=== PATIENT | male | born 1975 | race Hispanic/Latino ===

== ENCOUNTER 2018-04-27 17:28 | Emergency (ER) | payer OTHER ==
[2018-04-27 17:41] VITALS: TEMP 97.8
--- NOTE | 2018-04-27 18:16 | ED PDOC ---
HPI: Chest Pain Time Seen by Provider: 04/27/18 18:03 Chief Complaint (Nursing): Chest Pain History Per: Patient Onset/Duration Of Symptoms: Hrs (1) Current Symptoms Are (Timing): Still Present Severity: Moderate Quality: Other (Palpitations) Associated Symptoms: Syncope Exacerbating Factors: None Alleviating Factors: None Additional Complaint(s): Chest discomfort associated with palpitations and lightheadednesss while driving 1 hour prior to arrival. Denies SOB. Pt states he feels extremely anxious and feels like he is going to . Took 1 baby aspirin prior to arrival. Past Medical History Vital Signs: Last Vital Signs Temp 97.8 F 04/27/18 17:39 Pulse 76 04/27/18 17:56 Resp 12 04/27/18 17:55 BP 147/97 H 04/27/18 17:56 Pulse Ox 100 04/27/18 17:55 - Medical History PMH: No Chronic Diseases - Family History Family History: States: Unknown Family Hx - Social History Current smoker - smoking cessation education provided: No Drugs: Denies - Immunization History Hx Tetanus Toxoid Vaccination: No Hx Influenza Vaccination: No Hx Pneumococcal Vaccination: No - Allergies Allergies/Adverse Reactions: Allergies Allergy/AdvReac Type Severity Reaction Status Date / Time No Known Allergies Allergy Verified 04/27/18 17:39 Review of Systems ROS Statement: Except As Marked, All Systems Reviewed And Found Negative Cardiovascular: Positive for: Chest Pain, Palpitations Neurological: Positive for: Dizziness Physical Exam - Reviewed Nursing Documentation Reviewed: Yes Vital Signs Reviewed: Yes - Physical Exam Appears: Positive for: Non-toxic, No Acute Distress Head Exam: Positive for: ATRAUMATIC, NORMAL INSPECTION, NORMOCEPHALIC Skin: Positive for: Normal Color, Warm, DRY Eye Exam: Positive for: EOMI, Normal appearance, PERRL ENT: Positive for: Normal ENT Inspection Neck: Positive for: Normal, Painless ROM Cardiovascular/Chest: Positive for: Regular Rate, Rhythm Respiratory: Positive for: CNT, Normal Breath Sounds Gastrointestinal/Abdominal: Positive for: Normal Exam, Soft Back: Positive for: Normal Inspection Extremity: Positive for: Normal ROM Neurological/Psych: Positive for: Awake, Alert, Normal Tone - Laboratory Results Result Diagrams: 04/27/18 18:29 04/27/18 18:29 - ECG O2 Sat by Pulse Oximetry: 100 Disposition - Clinical Impression Clinical Impression: Chest pain - Patient ED Disposition Is Patient to be Admitted: Transfer of Care - Disposition Disposition: Transfer of Care Disposition Time: 19:20 Condition: FAIR Forms: [employer] Connect (Yi) Patient Signed Over To: Pavel Todd (pending labs)
[2018-04-27 18:39] LABS: BASO % 0.7 % (0.0-2.0); EOS # 0.2 K/uL (0.0-0.7); EOS % 3.4 % (0.0-4.0); HEMOGLOBIN 15.3 g/dL (12.0-18.0); LYMPH # 2.5 K/uL (1.0-4.3); LYMPH % 36.5 % (20.0-40.0); MEAN CORPUSCULAR HEMOGLOBIN 30.5 pg (27.0-31.0); MEAN CORPUSCULAR HGB CONC 33.8 g/dL (33.0-37.0); MEAN PLATELET VOLUME 9.1 fl (7.2-11.7); MONO # 0.7 K/uL (0.0-0.8); NEUT # 3.4 K/uL (1.8-7.0); NEUT % 49.4 % (50.0-75.0); NRBC % 0.1 % (0.0-0.0); RBC 5.03 Mil/uL (4.40-5.90); RED CELL DISTRIBUTION WIDTH 12.6 % (11.5-14.5); WHITE BLOOD COUNT 6.8 K/uL (4.8-10.8)
[2018-04-27 18:53] LABS: ALB/GLOB RATIO 1.6 (1.0-2.1); ALBUMIN 4.9 g/dL (3.5-5.0); ALT/SGPT 47 U/L (21-72); AST/SGOT 38 U/L (17-59); BLOOD UREA NITROGEN 18 mg/dl (9-20); CALCIUM 10.1 mg/dL (8.4-10.2); GFR NON-AFRICAN AMERICAN > 60
--- NOTE | 2018-04-27 19:21 | ED PDOC ---
- Laboratory Results Result Diagrams: 04/27/18 18:29 04/27/18 18:29 Lab Results: Troponin I < 0.0120 ng/mL (0.00-0.120) 04/27/18 18:29 Total Bilirubin 0.5 mg/dl (0.2-1.3) 04/27/18 18:29 AST 38 U/L (17-59) 04/27/18 18:29 ALT 47 U/L (21-72) 04/27/18 18:29 Alkaline Phosphatase 82 U/L (38-126) 04/27/18 18:29 Total Protein 8.1 G/DL (6.3-8.2) 04/27/18 18:29 Albumin 4.9 g/dL (3.5-5.0) 04/27/18 18:29 Globulin 3.1 gm/dL (2.2-3.9) 04/27/18 18:29 Albumin/Globulin Ratio 1.6 (1.0-2.1) 04/27/18 18:29 - ECG O2 Sat by Pulse Oximetry: 100 (RA) Pulse Ox Interpretation: Normal Medical Decision Making Medical Decision Making: Time: 1899 -- Patient endorsed to me by Dr. Springer, pending labs including Drug Screen and D Dimer, re-evaluation and final ER disposition. 20:30 Spoke to patient and his . Labs reviewed no clinically significant abnormalties. Patient is a agreeable to repeat troponin. Patient states he had a normal stress test a year ago. 23:02 Repeat troponin was normal. Patient will follow up at [facility]. Diagnosis is anxiety and atypical chest pain. Patient is stable for discharge. Scribe Attestation: Documented by Criss Ray, acting as a scribe Mike Todd MD. Provider Scribe Attestation: All medical record entries made by the Scribe were at my direction and personally dictated by me. I have reviewed the chart and agree that the record accurately reflects my personal performance of the history, physical exam, medical decision making, and the department course for this patient. I have also personally directed, reviewed, and agree with the discharge instructions and disposition. Disposition - Clinical Impression Clinical Impression: Atypical chest pain, Anxiety - Disposition Disposition: Routine/Home Disposition Time: 23:02 Condition: STABLE Additional Instructions: Please follow up with [facility] tomorrow Instructions: Chest Pain That Is Not Caused by the Heart (DC), Anxiety, Adult (DC) Forms: [employer] Connect (Macedonian)
[2018-04-27 20:02] LABS: BARBITURATES, UR NEGATIVE (NEGATIVE); BENZODIAZEPINES, UR NEGATIVE (NEGATIVE); OPIATES, UR NEGATIVE (NEGATIVE); PHENCYCLIDINE, UR NEGATIVE (NEGATIVE)
[2018-04-27 20:11] LABS: T3 1.24 nmol/L (1.49-2.60)
[2018-04-27 23:15] VITALS: BP 144/86; PULSE 74; RESP 17; O2SAT 99
--- NOTE | 2018-04-28 08:03 | CARD ---
APPROVED REPORT Date of service: 04/27/2018 EKG Measurement Heart [id number] <Conclusion> Normal sinus rhythm Moderate voltage criteria for LVH, may be normal variant Otherwise normal ECG
--- NOTE | 2018-04-28 10:58 | RAD ---
Date of service: 04/27/2018 HISTORY: Chest pain COMPARISON: No prior. TECHNIQUE: Chest PA and lateral FINDINGS: LINES AND TUBES: None. LUNG AND PLEURA: The lungs are hyperinflated and there is peribronchial thickening with chronic changes in both lungs. No focal consolidation. No pleural effusion or pneumothorax. HEART AND MEDIASTINUM: The heart is not enlarged. No aortic atherosclerotic calcifications present. The hilar and mediastinal contours are within normal limits. SKELETAL STRUCTURES: The bony structures are within normal limits for the patient's age. VISUALIZED UPPER ABDOMEN: Normal. OTHER FINDINGS: None. IMPRESSION: No active pulmonary disease. COPD.
== END 2018-04-27 23:15 | disposition home or self-care (01) ==
LOC: H.ER 17:28
DX: R07.9 Chest pain, unspecified (principal); F41.9 Anxiety disorder, unspecified; J44.9 Chronic obstructive pulmonary disease, unspecified